=== PATIENT | male | born 1960 | race Caucasian/White ===

== ENCOUNTER 2021-08-17 09:06 | Emergency (ER) | payer BC, SELFPAY ==
[2021-08-17 09:07] VITALS: BP 146/86; PULSE 81; RESP 16; TEMP 36.9; O2SAT 95; BMI 19.6
--- NOTE | 2021-08-17 09:11 | HMH.EDGENADL ---
ED Disposition Clinical Impression: Low back pain Qualifiers: Chronicity: acute Back pain laterality: right Sciatica presence: without sciatica Qualified Code(s): M54.50 - Low back pain, unspecified Constipation Qualifiers: Constipation type: unspecified constipation type Qualified Code(s): K59.00 - Constipation, unspecified Disposition: Home, Self-Care Condition on Discharge: Good Instructions: DI for Low Back Pain, DI for Constipation Additional Instructions: You are being provided with a list of physicians available for follow-up of your condition. Please call a physician on this list to arrange a follow-up appointment as soon as possible. Tylenol or ibuprofen for pain. MiraLAX as prescribed for constipation. Additional instructions for BACK PAIN: See your physician as soon as possible for further evaluation. Return immediately if back pain becomes intolerable, or if fever, numbness or weakness of your legs, loss of control of your bowels or bladder. Prescriptions: Ibuprofen [Ibuprofen 800mg Tablet] 800 mg PO Q8HP PRN #15 tab PRN Reason: Moderate Pain Transmission Status: Pending to [id number] polyethylene glycoL 3350 [Miralax 17gm Packet] 17 gm PO DAILY #5 packet Transmission Status: Pending to [id number] Referrals: Provider,Referral, [Primary Care Provider] - - Critical Care Critical Care Time: No Attestation: On , the high probability of a clinically significant, sudden or life threatening deterioration of the following system(s) required my full and direct attention, intervention and personal management. The time I documented below is in addition to time spent performing reported procedures but includes the following listed in this critical care notation. Medical Decision Making - Tristan Inquiry Pt receiving controlled substance: No Vital Signs: 08/17/21 09:07 08/17/21 09:50 Temperature 98.4 F Temperature Source Oral Pulse Rate 74 Pulse Rate [Right Radial] 81 Respiratory Rate 16 Blood Pressure 173/103 H Blood Pressure [Right Arm] 146/86 H Blood Pressure Mean [Right Arm] 106 Blood Pressure Source [Right Arm] Automatic Cuff Blood Pressure Position [Right Arm] Sitting 02 Sat by Pulse Oximetry 95 98 Oxygen Delivery Method Room Air - Lab Data Lab Results 08/17/21 09:40: WBC 6.5, RBC 5.14, Hgb 16.4, Hct 49.1, MCV 95.6 H, MCH 31.9 H, MCHC 33.4, RDW 13.1, Plt Count 255, MPV 8.1, Neut % (Auto) 58.5, Lymph % (Auto) 25.9, [place] % (Auto) 10.4 H, Eos % (Auto) 4.2, Baso % (Auto) 1.0, Neut # (Auto) 3.8, Lymph # (Auto) 1.7, [place] # (Auto) 0.7, Eos # (Auto) 0.3, Baso # (Auto) 0.1 08/17/21 09:40: Sodium 141, Potassium 4.0, Chloride 105, Carbon Dioxide 30, Anion Gap 10.0, BUN 19, Creatinine 0.80, Estimated Creat Clear 91, Estimated GFR 99, Est GFR ( Amer) 119, Glucose 77, Calcium 9.2, Total Bilirubin 1.2, AST 61 H, ALT 86 H, Alkaline Phosphatase 63, Total Protein 7.3, Albumin 4.4, Globulin 2.9, Albumin/Globulin Ratio 1.5, Lipase 75 08/17/21 11:00: Urine Color Yellow, Urine Appearance Clear, Urine pH 6.0, Ur Specific [place] >= 1.030, Urine Protein Negative, Urine Glucose (UA) Negative, Urine Ketones Negative, Urine Blood Negative, Urine Nitrate Negative, Urine Bilirubin Negative, Urine Urobilinogen 0.2, Ur Leukocyte Esterase Negative, Urine RBC None, Urine WBC None, Ur Squamous Epith Cells Occasional, Urine Bacteria Trace 08/17/21 11:00: Ur Barbituates Screen Negative Result diagrams: 08/17/21 09:40 08/17/21 09:40 Orders (Tests/Meds): ED MEDICATIONS Discontinued Medications Generic Name Dose Route Start Last Admin Trade Name Dhirajq PRN Reason Stop Dose Admin Sodium Chloride 1,000 mls @ 999 mls/hr 08/17/21 10:19 08/17/21 10:22 Sod Chlor 0.9% 1000ml Bag IV 08/17/21 11:19 999 mls/hr .Q1H1M ONE Administration Ketorolac Tromethamine 30 mg 08/17/21 09:23 08/17/21 09:43 Ketorolac 30mg/Ml Vial IV 08/17/21 09:24 30 mg ONCE ONE Ad
--- NOTE | 2021-08-17 09:23 | CT_ITS ---
PROCEDURE INFORMATION: Exam: CT Abdomen And Pelvis Without Contrast Exam date and time: 08/17/2021 9:23 AM Age: 61 years old Clinical indication: Abdominal pain; Additional info: Right flank pain TECHNIQUE: Imaging protocol: Computed tomography of the abdomen and pelvis without contrast. Radiation optimization: All CT scans at this facility use at least one of these dose optimization techniques: automated exposure control; mA and/or kV adjustment per patient size (includes targeted exams where dose is matched to clinical indication); or iterative reconstruction. COMPARISON: No relevant prior studies available. FINDINGS: Detailed evaluation of the abdominal and pelvic viscera is somewhat limited in the absence of intravenous contrast. Lungs: Emphysematous change and interstitial prominence. Liver: No focal hepatic mass. Gallbladder and bile ducts: Contracted gallbladder. Pancreas: No pancreatic mass or ductal dilatation. Spleen: No splenomegaly. 10 mm accessory spleen. Adrenal glands: Unremarkable adrenals. Kidneys and ureters: Normal renal morphology. No hydronephrosis or renal calculus. Stomach and bowel: Dilated fluid-filled stomach. Bowel dilatation, disproportionately involving the colon, along with copious stool in a pattern of constipation. Diverticula, without pericolonic inflammation. Appendix: Nonvisualization of the appendix. Intraperitoneal space: No significant free fluid. Vasculature: Normal caliber of the abdominal aorta. Lymph nodes: Subcentimeter lymph nodes. Urinary bladder: Nondistended bladder. Reproductive: Unremarkable as visualized. Bones/joints: Asymmetric right sacroiliac joint sclerosis. Degenerative change, disc bulging, and mild levoscoliosis. Transitional vertebra at the lumbosacral junction. Grade 1 anterolisthesis of L3 on L4. IMPRESSION: 1. Bowel dilatation, disproportionately involving the colon, with copious stool in a pattern of constipation. 2. Additional findings as described above.
[2021-08-17 09:50] VITALS: BP 173/103; PULSE 74; O2SAT 98
[2021-08-17 09:50] LABS: Basophils # 0.1 K/mm3 (0-0.2); Eosinophils # 0.3 K/mm3 (0.0-0.4); Eosinophils % 4.2 % (0.1-12.0); Hematocrit 49.1 % (42.0-52.0); Hemoglobin 16.4 g/dL (14.1-18.0); Lymphocytes # 1.7 K/mm3 (0.7-4.5); Lymphocytes % 25.9 % (10-50); Mean Corpuscular HGB Conc 33.4 g/dL (31.8-35.4); Mean Corpuscular Hemoglobin 31.9 pg (27.0-31.2); Mean Corpuscular Volume 95.6 fl (80-94); Mean Platelet Volume 8.1 fl (7.4-10.4); Monocytes # 0.7 K/mm3 (0.1-1.0); Monocytes % 10.4 % (1.7-9.3); Neutrophils # 3.8 K/mm3 (1.8-7.8); Neutrophils % 58.5 % (37.0-80.0); Platelet Count 255 K/mm3 (142-424); Red Blood Count 5.14 M/mm3 (4.60-6.20); Red Cell Distribution Width 13.1 % (11.5-17.5); White Blood Count 6.5 K/mm3 (4.8-10.8)
--- NOTE | 2021-08-17 09:52 | PC.NURSE ---
Pt stated that he cannot pee at this moment.
[2021-08-17 09:55] LABS: Chloride 105 mmol/L (98-107); Sodium 141 mmol/L (136-145)
[2021-08-17 09:57] LABS: Blood Urea Nitrogen 19 mg/dl (9-20); Creatinine Clearance Estimated 91 mL/min (50-200); Estimated Glomerular Filt Rate 99 ml/min (>60); GFR (African American) 119 ML/MIN (>60)
[2021-08-17 09:58] LABS: Alanine Aminotransferase 86 U/L (12-78); Albumin Level 4.4 g/dl (3.5-5.0); Albumin/Globulin Ratio 1.5 (1.1-1.8); Alkaline Phosphatase 63 U/L (38-126); Aspartate Amino Transferase 61 U/L (17-59); Bilirubin,Total 1.2 mg/dl (0.2-1.3); Calcium 9.2 mg/dl (8.4-10.2); Carbon Dioxide 30 mmol/L (22.0-30.0); Globulin 2.9 g/dL (1.3-3.2); Glucose 77 mg/dl (74-100); Lipase 75 U/L (23-300); Total Protein,Serum 7.3 g/dl (6.3-8.2)
[2021-08-17 11:10] LABS: Appearance,Urine CLEAR (Clear); Bilirubin,Urine Negative (Negative); Blood, Urine Negative (Negative); Color,Urine YELLOW (Yellow); Glucose,Urine (UA) Negative (Negative); Ketones,Urine Negative (Negative); Leukocyte Esterase,Urine Negative (Negative); Nitrate,Urine Negative (Negative); Protein,Urine Negative (Negative); Specific Gravity, Urine >= 1.030 (1.005-1.030); Urobilinogen,Urine 0.2 EU/dl (0.2)
[2021-08-17 11:11] LABS: Microscopic, Urine URINE MICROSCOPIC (MICROSCOPIC)
[2021-08-17 11:23] LABS: Bacteria,Urine Trace /lpf; Squamous Epithelial Cell,Urine Occasional #/hpf (0-5)
[2021-08-17 11:46] LABS: Barbiturates Screen,Urine Negative ng/ml (<200)
[2021-08-17 11:47] LABS: Benzodiazepines Screen,Urine Negative ng/ml (<200)
[2021-08-17 11:48] LABS: Cannabinoid Screen,Urine Positive ng/ml (<50)
[2021-08-17 11:49] LABS: Cocaine Screen,Urine Negative ng/ml (<300); Methadone Screen,Urine Negative ng/ml (<300)
[2021-08-17 11:50] LABS: Opiate Screen,Urine Negative ng/ml (<300)
[2021-08-17 11:51] LABS: Phencyclidine Screen,Urine Negative ng/ml (<25)
[2021-08-17 12:11] LABS: Amphetamine/Metha Screen,Urine Positive ng/ml (<1000)
[2021-08-17 12:29] VITALS: BP 179/89; PULSE 89; RESP 18; TEMP 36.8; O2SAT 99
== END 2021-08-17 12:29 | disposition home or self-care (01) ==
PROVIDERS: Emergency Provider Emergency Medicine
DX: M54.50 Low back pain, unspecified (principal); K59.00 Constipation, unspecified
CPT/HCPCS: 74176; 80053; 80305; 81001; 83690; 85025; 96365; 96375; 99283

== ENCOUNTER 2024-07-13 11:26 | Emergency (ER) | payer BC, SELFPAY ==
[2024-07-13 11:45] VITALS: BP 158/94; PULSE 61; RESP 18; TEMP 36.8; O2SAT 98; BMI 19.1
[2024-07-13] MEDS: ACETAMINOPHEN 500MG TAB 1000 MG PO (12:28)
[2024-07-13] MEDS: KETOROLAC 30MG/ML VIAL 30 MG IM (12:28)
[2024-07-13 12:30] VITALS: BP 151/90; PULSE 54; O2SAT 98
[2024-07-13] MEDS: diazePAM 5MG TABLET 10 MG PO (12:34)
[2024-07-13] MEDS: LIDOCAINE 5% TRANSDERMAL PATCH 1 EACH TP (12:34)
[2024-07-13 12:58] VITALS: BP 128/78; PULSE 59; O2SAT 100
[2024-07-13 13:28] VITALS: BP 128/78; PULSE 57; RESP 15; TEMP 36.7; O2SAT 100
--- NOTE | 2024-07-13 13:44 | ED_ITS ---
Discharge Plan Disposition Patient Disposition: Home, Self-Care Condition: Good Prescriptions Prescriptions: New naproxen 500 mg tablet 500 mg PO BID Qty: 20 0RF methocarbamol 750 mg tablet 750 mg PO Q8H PRN (Reason: pain) Qty: 20 0RF No Action polyethylene glycol 3350 17 GM powder in packet 17 gm PO DAILY Qty: 5 0RF ibuprofen 800 MG tablet 800 mg PO Q8HP PRN (Reason: Moderate Pain) Qty: 15 0RF Referrals Follow up/Referrals: Provider,Referral, MD [Primary Care Provider] - See instructions Activity Restrictions/Add. Instructions Additional Instructions/Restrictions: You were evaluated in the emergency department today. You were given sedating medication here in the emergency department, so do not drive or operate heavy machinery for the next 16 to 24 hours. Follow-up closely with your primary care provider. supervisor finish end the prescriptions at the pharmacy and take them as needed for pain. You may also take Tylenol every 4-6 hours at home as needed for pain. Return to the emergency department for new or worsening symptoms Clinical Impressions Clinical Impression: Neck muscle spasm, Cervical radicular pain Stand Alone Forms Stand Alone Forms: Work/School Release Instructions Patient Instructions: DI for Neck Sprain, DI for Neck Pain Print Language Print Language: Thai Discharge ED Provider: Meka Chaudhary General Adult HPI General Chief complaint: Extremity Problem,Nontraumatic Stated complaint: neck, head back and shoulder pain Time Seen by Provider: 07/13/24 11:54 Mode of Arrival: Ambulatory Source of Information: Patient Limitations: No Limitations Description of Symptoms (Recalled from ER Triage Doc. by RN): c/o sore neck that goes up his neck and into her shoulder and down both hips. Pt states the pain s tarted one week ago after looking up for a long period of time after hanging a light. History of Present Illness HPI narrative: This patient is a 64-year-old male who reports a history of sciatica presenting to the emergency department for evaluation with concern for neck pain radiating down his left arm. He notes he was doing a lot of overhead work about a week ago looking up for an extremely long period of time, and since then his neck has been sore. It goes down into his shoulder and down his left arm as well. No falls or traumatic injury noted. No fevers, chills, or infectious symptoms. Related Data Previous Rx's ?Medication ?Instructions ?Recorded ibuprofen 800 mg tablet 800 mg PO Q8HP PRN Moderate Pain 08/17/21 #15 tabs polyethylene glycol 3350 17 gram 17 gm PO DAILY #5 packets 08/17/21 oral powder packet methocarbamol 750 mg tablet 750 mg PO Q8H PRN pain #20 tabs 07/13/24 naproxen 500 mg tablet 500 mg PO BID #20 tabs 07/13/24 Allergies Allergy/AdvReac Type Severity Reaction Status Date / Time No Known Allergies Allergy Verified 08/17/21 09:29 [facility] Disclaimer: The information contained in this section may have been updated after the patient was seen, as this information can be updated by other users. Social History Smoking Status: Current every day smoker alcohol intake: never current occupational status: employed Travel in the last 8 weeks: None Other Medical History Have you received the Flu Vaccine for this season: No Have you received the Pneumonia Vaccine: No ROS Obtained: Yes All systems reviewed & no additional complaints except as documented Physical Exam General General appearance: alert and in no apparent distress Head Head exam: atraumatic and normocephalic Eye Eye exam: Present normal appearance, PERRL and EOMI ENT ENT exam: Present normal exam, normal oropharynx, mucous membranes moist and normal external ear exam Neck Neck exam: Present full ROM, trachea midline, tenderness and other (Left paraspinal muscle hypertonicity with spasm and tenderness to palpation. No meningismus or lymphadenopathy); Absent meningismus or lymphadenopathy Chest Chest inspection: Present normal inspection and symmetric chest wall rise; Absent tenderness Respiratory Respiratory exam: Present normal lung sounds bilaterally; Absent respiratory distress, wheezes, stridor or accessory muscle use Cardiovascular Cardiovascular exam: Present regular rate and normal rhythm Abdominal Exam Abdominal exam: Present soft; Absent distention, tenderness or guarding Extremities Exam Extremities exam: Present normal inspection, full ROM and normal capillary refill; Absent tenderness or edema Back Exam Back exam: Present normal inspection and full ROM; Absent tenderness Neurological Exam Neurological exam: Present alert, oriented X3, CN II-XII intact and normal gait; Absent motor sensory deficit Psychiatric Psychiatric exam: Present normal affect and normal mood Skin Skin exam: Present warm and dry Medical Decision Making Medical Records Medical records reviewed: Yes I reviewed the patient's medical records. Screening: Per USPSTF and CDC recommendations, given the prevalence of disease in our region, it is our hospital?s policy to screen for HIV and viral Hepatitis for all patients aged 18 and over and those with ongoing risk factors. Tristan Inquiry Pt receiving controlled substance: No Vital Signs: 07/13/24 11:45 07/13/24 12:30 07/13/24 12:58 Temperature 98.3 F Temperature Source Oral Pulse Rate 54 L 59 L Pulse Rate [Left Radial] 61 Respiratory Rate 18 Blood Pressure 151/90 H 128/78 Blood Pressure [Right Arm] 158/94 H Blood Pressure Mean 111 Blood Pressure Mean [Right Arm] 115 Blood Pressure Source [Right Arm] Automatic Cuff Blood Pressure Position [Right Arm] Sitting 02 Sat by Pulse Oximetry 98 98 100 Oxygen Delivery Method Room Air 07/13/24 13:28 Temperature 98.0 F Temperature Source Pulse Rate 57 L Pulse Rate [Left Radial] Respiratory Rate 15 Blood Pressure 128/78 Blood Pressure [Right Arm] Blood Pressure Mean Blood Pressure Mean [Right Arm] Blood Pressure Source [Right Arm] Blood Pressure Position [Right Arm] 02 Sat by Pulse Oximetry Oxygen Delivery Method Room Air Lab Data Lab results reviewed: Yes I reviewed the patient's lab results. Orders (Tests/Meds): ED MEDICATIONS Discontinued Medications Generic Name Dose Route Start Last Admin Trade Name Dhirajq PRN Reason Stop Dose Admin Acetaminophen 1,000 mg 07/13/24 12:18 07/13/24 12:28 Acetaminophen 500mg Tab PO 07/13/24 12:19 1,000 mg ONCE ONE Administration Diazepam 10 mg 07/13/24 12:18 07/13/24 12:34 Diazepam 5mg Tablet PO 07/13/24 12:19 10 mg ONCE ONE Administration Ketorolac Tromethamine 30 mg 07/13/24 12:18 07/13/24 12:28 Ketorolac 30mg/Ml Vial IM 07/13/24 12:19 30 mg ONCE ONE Administration Lidocaine 1 each 07/13/24 12:19 07/13/24 12:34 Lidocaine 5% Transdermal Patch TP 07/13/24 12:20 1 each ONCE ONE Administration Medical Decision Narrative: In summary, this patient is a 64-year-old male presenting to the Emergency Department for evaluation of neck pain going down his left arm. Differential diagnoses considered include but are not limited to musculoskeletal strain/brain, torticollis, cervical radiculopathy, stress fracture. Ruling out the most morbid conditions drove assessment. It should be noted patient's history includes chronic low back pain with sciatica which is not at goal therapy. This complicates all aspects of care by increasing patient's risk for morbidity. On exam, the patient is sitting upright in bed in no acute distress. He does have some paraspinal muscle tenderness and hypertonicity with muscle spasm. No meningismus, infectious symptoms, fevers, or other concerns. He is neurologically intact. Ultimately, feel he likely has muscle spasm. I considered obtaining imaging such as CT scan of the neck, however after shared decision-making with the patient and lack of acute traumatic injury, this was de ferred as I feel it would likely not exchange trouble shooter. Patient was given IM Toradol, oral Tylenol, and oral Valium for symptomatic improvement of pain as well as a topical Lidoderm patch. He tolerated this well with significant improvement in his pain and improvement in his muscle spasm and range of motion. He remains neurologically intact. Given this, I feel that he is appropriate for discharge home with close follow-up with primary care for muscle spasms of the neck. He was given prescriptions for naproxen and Robaxin and instructions for supportive management. He was discharged after all questions were answered. Critical Care Critical Care Time Critical Care Time: No
== END 2024-07-13 13:30 | disposition home or self-care (01) ==
PROVIDERS: Emergency Provider Emergency Medicine
DX: M54.12 Radiculopathy, cervical region (principal); M62.838 Other muscle spasm; M54.2 Cervicalgia; M25.512 Pain in left shoulder; M25.551 Pain in right hip; M25.552 Pain in left hip
CPT/HCPCS: 96372; 99283; J1885

== ENCOUNTER 2024-11-03 11:05 | Outpatient (CLI) | payer OTHER, SELFPAY ==
[2024-11-03 10:15] LABS: INR 1.03 (0.9-1.1); Prothrombin Time 11.5 seconds (10.1-12.5)
[2024-11-03 18:56] LABS: Basophils # 0.1 K/mm3 (0-0.2); Basophils % 1.1 % (0.1-2.0); Eosinophils # 0.2 K/mm3 (0.0-0.4); Eosinophils % 3.6 % (0.1-12.0); Hematocrit 47.2 % (42.0-52.0); Hemoglobin 15.4 g/dL (14.1-18.0); Lymphocytes # 2.2 K/mm3 (0.7-4.5); Lymphocytes % 34.8 % (10-50); Mean Corpuscular HGB Conc 32.6 g/dL (31.8-35.4); Mean Corpuscular Hemoglobin 30.7 pg (27.0-31.2); Mean Corpuscular Volume 94.2 fl (80-94); Mean Platelet Volume 12.1 fl (7.4-10.4); Monocytes # 0.9 K/mm3 (0.1-1.0); Monocytes % 14.2 % (1.7-9.3); Neutrophils # 2.9 K/mm3 (1.8-7.8); Neutrophils % 46.1 % (37.0-80.0); Platelet Count 141 K/mm3 (142-424); Red Blood Count 5.01 M/mm3 (4.60-6.20); Red Cell Distribution Width 13.4 % (11.5-17.5); White Blood Count 6.4 K/mm3 (4.8-10.8)
[2024-11-03 21:05] LABS: Alanine Aminotransferase 111 U/L (12-78); Albumin Level 4.7 g/dl (3.5-5.0); Albumin/Globulin Ratio 1.9 (1.1-1.8); Alkaline Phosphatase 59 U/L (38-126); Anion Gap 11.3 mEq/L (5-15); Aspartate Amino Transferase 75 U/L (17-59); Bilirubin,Total 1.7 mg/dl (0.2-1.3); Blood Urea Nitrogen 25 mg/dl (9-20); Calcium 9.4 mg/dl (8.4-10.2); Carbon Dioxide 24 mmol/L (22.0-30.0); Chloride 108 mmol/L (98-107); Chol/HDL Ratio 4.1 (1-3.5); Cholesterol 151 mg/dl (140-200); Estimated Glomerular Filt Rate 85 ml/min (>60); GFR (African American) 103 ML/MIN (>60); Globulin 2.5 g/dL (1.3-3.2); Glucose 83 mg/dl (74-100); HDL Cholesterol 37 mg/dl (40-60); Potassium 4.3 mmoL/L (3.5-5.1); Sodium 139 mmol/L (136-145); Total Protein,Serum 7.2 g/dl (6.3-8.2); Triglycerides 71 mg/dl (30-150); VLDL Cholesterol 14 mg/dL (0-40)
[2024-11-03 21:15] LABS: Direct LDL Cholesterol 87.45 mg/dL (100-129)
[2024-11-03 21:23] LABS: T4 (Thyroxine) 13.9 ug/dl (5.53-11.0)
[2024-11-03 21:38] LABS: Prostate Specific Ag Screen 0.5 ng/ml (0.0-4.0); Thyroid Stimulating Hormone 2.66 uIU/mL (0.465-4.68)
[2024-11-05 08:14] LABS: Hepatitis B Surface Antigen Negative (Negative)
[2024-11-05 09:14] LABS: Hep A Ab, IgM Negative (Negative); Hep A Ab, Total Positive (Negative); Hep B Core Ab, Total Positive (Negative); Hep B Surface Ab, Qual Reactive (.)
[2024-11-09 20:10] LABS: Hepatitis C Genotype 1a (.)
== END 2024-11-03 23:59 | disposition home or self-care (01) ==
LOC: LAB.DROPOF 11-04 11:05
PROVIDERS: PCP Nurse Practitioner Family; Visit Provider Nurse Practitioner Family
DX: B19.20 Unspecified viral hepatitis C without hepatic coma (principal)
CPT/HCPCS: 80053; 80061; 82306; 84436; 84443; 85025; 85610; 86704; 86706; 86708; 86709; 87340; 87902; G0103

== ENCOUNTER 2024-11-16 21:56 | Outpatient (CLI) | payer OTHER, SELFPAY ==
[2024-11-16 23:32] LABS: HIV Combo NEGATIVE (Negative)
[2024-11-17 00:08] LABS: Hepatitis C Ab Qual. W/ RFX REACTIVE (Negative)
[2024-11-18 09:18] LABS: Hep B Core Ab, Total Positive (Negative)
== END 2024-11-16 23:59 | disposition home or self-care (01) ==
LOC: LAB.DROPOF 21:58
PROVIDERS: PCP Nurse Practitioner Family; Visit Provider Nurse Practitioner Family
DX: B18.2 Chronic viral hepatitis C (principal)
CPT/HCPCS: 86704; 86803; 87389; 87522